=== PATIENT | female | born 1985 | race Caucasian/White ===

== ENCOUNTER 2019-11-10 16:44 | Emergency (ER) | payer SELFPAY ==
[~2019-11-10] VITALS: Ht 152.4 cm; Wt 78.2 kg
[2019-11-10 16:48] VITALS: BP 127/74; TEMP 98
[2019-11-10] MEDS ORDERED: CRUTCHES MC (17:42)
[2019-11-10] MEDS ORDERED: PERCOCET 325 MG1 TA2 PO (17:42)
[2019-11-10 18:53] VITALS: PULSE 82
== END 2019-11-10 18:55 | disposition home or self-care (01) ==
LOC: COL.ER 16:44
DX: S82.842A Displaced bimalleolar fracture of left lower leg, initial encounter for closed fracture (principal); X50.1XXA Overexertion from prolonged static or awkward postures, initial encounter; Y92.009 Unspecified place in unspecified non-institutional (private) residence as the place of occurrence of the external cause
CPT/HCPCS: Q4045